=== PATIENT | female | born 1990 | race African-American/Black ===

== ENCOUNTER 2017-03-21 13:26 | Emergency (ER) | payer MEDICAID ==
[~2017-03-21] VITALS: Ht 157.5 cm; Wt 80.0 kg
[~2017-03-21 13:26] MED LIST: CALCIUM CHLORIDE 1GM/10ML SYR IV ONE; EPINEPHRINE 0.1MG/ML (1:10,000) 10ML SYR ONE; SODIUM BICARBONATE 7.5% 0.9 MEQ/ML 50ML SYR IV ONE
[2017-03-21 13:27] VITALS: BP 0/0
[2017-03-21] MEDS ORDERED: EPINEPHRINE 0.1MG/ML (1:10,000) 10ML SYR ONE (13:46)
== END 2017-03-21 13:42 | disposition expired ==
LOC: ER 13:30
DX: O99.413 Diseases of the circulatory system complicating pregnancy, third trimester (principal); I46.9 Cardiac arrest, cause unspecified; O36.4XX0 Maternal care for intrauterine death, not applicable or unspecified; Z3A.32 32 weeks gestation of pregnancy; E11.9 Type 2 diabetes mellitus without complications
CPT/HCPCS: 31500; 76815; 92950; 99285; J0171; J3490